=== PATIENT | male | born 1990 | race Caucasian/White ===

== ENCOUNTER 2021-07-31 07:58 | Outpatient (CLI) | payer BC, SELFPAY ==
--- NOTE | ~2021-07-31 | XR_ITS ---
EXAMINATION: XR barium swallow DATE: 07/31/2021 08:25 INDICATION: Dysphagia, unspecified. TECHNIQUE: The patient drank thick barium, gas-producing crystals, and thin barium. Fluoroscopy of th e hypopharynx and esophagus was performed. Fluoroscopy exposure time was 0.3 minutes. The total numbe r of images was 185. The dose-area product was 0.654 Gy-cm^2. COMPARISON: CT abdomen 07/22/2008 FINDINGS: There is no mass or stricture of the esophagus. Esophageal motility is normal. There is a s mall sliding hiatal hernia. There was no gastroesophageal reflux with provocative maneuvers. IMPRESSION: 1. Small sliding hiatal hernia. Reviewed, dictated and finalized at location A. [employer]
== END 2021-07-31 07:59 | disposition home or self-care (01) ==
LOC: ANHIMG 08:00
PROVIDERS: PCP Family Medicine; Visit Provider Otolaryngology
DX: R13.10 Dysphagia, unspecified (principal); K44.9 Diaphragmatic hernia without obstruction or gangrene
CPT/HCPCS: 74220